=== PATIENT | male | born 2000 | race Caucasian/White ===

== ENCOUNTER 2022-07-17 00:30 | Emergency (ER) | payer OTHER ==
[~2022-07-17] VITALS: Ht 182.9 cm; Wt 68.0 kg
[2022-07-17 01:03] VITALS: BP 134/68
--- NOTE | 2022-07-17 01:09 | NUR ---
TO LOBBY FOLLOWING TRIAGE
[2022-07-17] MEDS ORDERED: IBUPROFEN 400 MG TAB PO ONE (01:30)
== END 2022-07-17 05:05 | disposition home or self-care (01) ==
LOC: MED 00:30
DX: M54.6 Pain in thoracic spine (principal)
CPT/HCPCS: 71045; 99283